=== PATIENT | female | born 1985 | race Caucasian/White ===

== ENCOUNTER → 2018-05-17 08:53 | Outpatient (CLI) | payer OTHER, SELFPAY ==
--- NOTE | 2018-05-17 09:00 | BD_ITS ---
STUDY: DUAL ENERGY X-RAY ABSORPTIOMETRY / DXA REASON FOR EXAM: Female, 32 years old. Long-term prednisone use. No loss of height. TECHNIQUE: Bone Mineral Density (BMD) measurements of lumbar spine and bilateral hips were obtained. COMPARISON: Comparison is made with prior study dated February 06, 2014. FINDINGS: Lumbar Spine (L1-L4): g/cm2 (1.064) / T-score (-0.9) / Z-score (-0.9) Findings are suggestive of normal bone density with a low fracture risk. Left Femur Total: g/cm2 (1.041) / T-score (0.3) / Z-score (0.4) Left Femoral Neck: g/cm2 (1.031) / T-score (0.0) / Z-score (0.2) Right Femur Total: g/cm2 (0.996) / T-score (-0.1) / Z-score (0.0) Right Femoral Neck: g/cm2 (0.941) / T-score (-0.7) / Z-score (-0.5) The T-Scores on the most recent prior examination were: Lumbar Spine (L1-L4): There has been worsening of bone density since the previous examination. Left Femur Total: which represents a worsening of 7.2%. Right Femur Total: which represents a worsening of 8.0%. BD/Dexa Bone Density Study IMPRESSION: The patient is considered normal as outlined below according to World Omar Organization (WHO) criteria with a low fracture risk. There has been worsening of bone density since the previous examination. Reference Information: The T-score is the number of standard deviations above or below the standard which is normal for young adults at their peak bone mineral density. The World Health Organization (WHO) interprets the T-scores as follows: Above -1 Normal bone density Between -1 and -2.5 Osteopenia Equal to / or below -2.5 Osteoporosis As a practical clinical guideline, osteopenia may be graded as follows: Mild -1 through -1.5 Moderate -1.6 through -2.0 Severe -2.1 through -2.4 The Z-score is the number of standard deviations above or below age-matched controls. A Z-score of less than -1.5 would be considered abnormal. References: 1. NIH Osteoporosis and Related Bone Diseases http://www.osteo.org 2. International Society for Clinical Densitometry http://www.iscd.org 3. National Osteoporosis Foundation http://www.nof.org Electronically Signed: Diego Kraus MD at 8:17 EST Tel [phone], Service support ,
== END ==
PROVIDERS: Family Provider Student in an Organized Health Care Education/Training Program; PCP Student in an Organized Health Care Education/Training Program; Referring Provider Internal Medicine Gastroenterology; Visit Provider Internal Medicine Gastroenterology
DX: Z13.820 Encounter for screening for osteoporosis (principal)
CPT/HCPCS: 77080

== ENCOUNTER → 2018-06-13 12:35 | Outpatient (CLI) | payer OTHER, SELFPAY | PROVIDERS: Family Provider Student in an Organized Health Care Education/Training Program; PCP Student in an Organized Health Care Education/Training Program; Referring Provider Internal Medicine Gastroenterology; Visit Provider Internal Medicine Gastroenterology | DX: K62.5 Hemorrhage of anus and rectum (principal); R19.4 Change in bowel habit | CPT/HCPCS: 87506 ==

== ENCOUNTER → 2018-09-21 08:02 | Outpatient (CLI) | payer OTHER, SELFPAY ==
[2018-09-21 08:13] VITALS: BP 134/93; PULSE 101; RESP 18; TEMP 36.9; O2SAT 99; BMI 23.9
== END ==
PROVIDERS: Family Provider Student in an Organized Health Care Education/Training Program; PCP Student in an Organized Health Care Education/Training Program; Referring Provider Internal Medicine Gastroenterology; Visit Provider Internal Medicine Gastroenterology
DX: K51.90 Ulcerative colitis, unspecified, without complications (principal)
CPT/HCPCS: 96413; J7050; A4216; J3380

== ENCOUNTER → 2018-10-05 12:51 | Outpatient (CLI) | payer OTHER, SELFPAY ==
[2018-09-21 08:13] VITALS: BMI 23.9
[2018-10-05 13:03] VITALS: BP 129/72; PULSE 85; RESP 18; TEMP 36.5; O2SAT 100; BMI 24.3
== END ==
PROVIDERS: Family Provider Student in an Organized Health Care Education/Training Program; PCP Student in an Organized Health Care Education/Training Program; Visit Provider Internal Medicine Gastroenterology
DX: K51.90 Ulcerative colitis, unspecified, without complications (principal)
CPT/HCPCS: 96413; J7050; A4216; J3380

== ENCOUNTER → 2018-11-01 09:27 | Outpatient (CLI) | payer OTHER, SELFPAY ==
[2018-09-21 08:13] VITALS: BMI 23.9
[2018-10-05 13:03] VITALS: BMI 24.3
[2018-11-01 09:41] VITALS: BP 128/83; PULSE 83; RESP 16; TEMP 36.7; O2SAT 100; BMI 23.9
== END ==
PROVIDERS: Family Provider Student in an Organized Health Care Education/Training Program; PCP Student in an Organized Health Care Education/Training Program; Referring Provider Internal Medicine Gastroenterology; Visit Provider Internal Medicine Gastroenterology
DX: K51.918 Ulcerative colitis, unspecified with other complication (principal)
CPT/HCPCS: 96413; J7050; A4216; J3380

== ENCOUNTER → 2018-12-27 13:27 | Outpatient (CLI) | payer OTHER, SELFPAY ==
[2018-11-01 09:41] VITALS: BMI 23.9
[2018-12-27 13:39] VITALS: BP 112/71; PULSE 114; RESP 16; TEMP 36.4; O2SAT 100; BMI 23.5
== END ==
PROVIDERS: Family Provider Student in an Organized Health Care Education/Training Program; PCP Student in an Organized Health Care Education/Training Program; Referring Provider Internal Medicine Gastroenterology; Visit Provider Internal Medicine Gastroenterology
DX: K51.90 Ulcerative colitis, unspecified, without complications (principal)
CPT/HCPCS: 96413; J7050; A4216; J3380

== ENCOUNTER → 2019-01-05 09:03 | Outpatient (CLI) | payer OTHER, SELFPAY ==
[2018-12-27 13:39] VITALS: BMI 23.5
--- NOTE | 2019-01-05 09:07 | US_ITS ---
STUDY: ABDOMINAL ULTRASOUND REASON FOR EXAM: Female, 33 years old. Abdominal pain TECHNIQUE: Transabdominal ultrasound was performed with real-time and static swanson scale imaging. TECHNICAL QUALITY: Adequate. COMPARISON: None. FINDINGS: Liver: The liver measures 12.9 cm. There is normal echogenicity of the liver. The bile ducts are within normal limits. There is hepatic color flow. The direction of portal flow is hepatopetal. There is no demonstrated mass lesion. Gallbladder: Normal distended gallbladder. The gallbladder wall measures 3 mm. There is a negative sonographic Prater's sign. There is no pericholecystic fluid. There is a solitary echogenic gallstone within the gallbladder. Common Bile Duct (C.B.D.): The common bile duct measures 3 mm. Pancreas: Normal size of the head, body and tail of the pancreas. There is normal echogenicity of the pancreas. There is no demonstrated pancreatic mass or cyst. Spleen: Normal size of the spleen. The spleen measures 10.4 cm. Right Kidney: Normal size of the right kidney. The right kidney measures 10.1 cm. Normal renal cortex. There is no demonstrated renal mass or cyst. There is no right hydronephrosis. Left Kidney: Normal size of the left kidney. The left kidney measures 10.7 cm. Normal renal cortex. There is no demonstrated renal mass or cyst. There is no left hydronephrosis. Aorta: The aorta is normal in caliber. I.V.C.: The IVC is patent. There is no ascites. US/Abdomen Complete IMPRESSION: Cholelithiasis without sonographic evidence of acute cholecystitis. Otherwise, unremarkable abdominal ultrasound. Electronically Signed: Eddi Hendrix, at 19:44 EDT Tel , Service support ,
== END ==
PROVIDERS: Family Provider Student in an Organized Health Care Education/Training Program; PCP Student in an Organized Health Care Education/Training Program; Referring Provider Internal Medicine Gastroenterology; Visit Provider Internal Medicine Gastroenterology
DX: K51.90 Ulcerative colitis, unspecified, without complications (principal); R10.9 Unspecified abdominal pain; R53.83 Other fatigue; M79.89 Other specified soft tissue disorders
CPT/HCPCS: 76700

== ENCOUNTER → 2019-01-17 11:00 | Outpatient (CLI) | payer OTHER, SELFPAY ==
[2018-12-27 13:39] VITALS: BMI 23.5
[2019-01-17 12:50] LABS: Erythrocyte Sedimentation Rate 21 mm/hr (0-20)
[2019-01-17 12:52] LABS: Hematocrit 31.8 % (37-47); Hemoglobin 9.5 g/dl (12.0-15.0); Mean Corp Hgb Conc 29.9 g/gl (32-36); Mean Corpuscular Hgb 23.5 pg (27.0-32.0); Mean Corpuscular Volume 78.7 fL (81-99); Mean Platelet Vol. 10.3 fl (6.2-12.0); Platelet Count 615 K/mm3 (150-450); RBC Distribution Width CV 14.3 % (11.6-14.6); RBC Distribution Width SD 39.6 fl (35.1-43.9); Red Blood Count 4.04 M/mm3 (4.2-5.4); White Blood Count 17.8 K/mm3 (4.4-11.0)
[2019-01-17 13:00] LABS: Scan Indicated on CBC? Y/N NO
[2019-01-17 13:21] LABS: ALB/GLOB Ratio 0.7 RATIO (0.9-2.4); AST(SGOT) 31 U/L (15-37); Alanine Aminotransfer ALT/SGPT 23 U/L (13-56); Albumin, Serum 3.1 g/dL (3.2-5.0); Alkaline Phosphatase 73 U/L (45-117); Anion Gap 4 (5-15); BUN 10 mg/dL (7-18); BUN/Creat Ratio 11.9 RATIO (10-20); Calcium,Total 9.2 mg/dL (8.5-10.1); Chloride 104 mmol/L (98-107); Creatinine, Serum 0.84 mg/dL (0.55-1.02); EST Glomerular Filtration Rate 82 mL/min (>60); Est Glom Filt Rate - Afr Amer 100 mL/min (>60); Globulin 4.4 g/dL (2.2-4.2); Glucose 84 mg/dL (74-106); Potassium 3.9 mmol/L (3.5-5.1); Protein, Total 7.5 g/dL (6.4-8.2); Sodium Level 138 mmol/L (136-145)
== END ==
PROVIDERS: Family Provider Student in an Organized Health Care Education/Training Program; PCP Student in an Organized Health Care Education/Training Program; Referring Provider Internal Medicine Gastroenterology; Visit Provider Internal Medicine Gastroenterology
DX: D50.9 Iron deficiency anemia, unspecified (principal); R22.40 Localized swelling, mass and lump, unspecified lower limb; K51.918 Ulcerative colitis, unspecified with other complication
CPT/HCPCS: 36415; 80053; 85027; 85652; 86140

== ENCOUNTER → 2019-01-25 07:58 | Outpatient (CLI) | payer OTHER, SELFPAY ==
[2018-12-27 13:39] VITALS: BMI 23.5
[2019-01-25 08:09] VITALS: BP 117/77; PULSE 94; RESP 18; TEMP 36.6; O2SAT 100; BMI 23.9
== END ==
PROVIDERS: Family Provider Student in an Organized Health Care Education/Training Program; PCP Student in an Organized Health Care Education/Training Program; Referring Provider Internal Medicine Gastroenterology; Visit Provider Internal Medicine Gastroenterology
DX: D50.9 Iron deficiency anemia, unspecified (principal)
CPT/HCPCS: 96365; 96366; J1756; J7050; A4216

== ENCOUNTER → 2019-01-25 | Outpatient (CLI) | payer OTHER, SELFPAY ==
[2019-01-25 17:54] VITALS: BMI 23.9
== END | disposition home or self-care (01) ==
LOC: LABSPEC 01-27 14:36
PROVIDERS: Family Provider Student in an Organized Health Care Education/Training Program; PCP Student in an Organized Health Care Education/Training Program; Visit Provider Physician Assistant Surgical
DX: J02.9 Acute pharyngitis, unspecified (principal)
CPT/HCPCS: 87081

== ENCOUNTER → 2019-02-05 13:00 | Outpatient (CLI) | payer OTHER, SELFPAY ==
[2019-01-25 08:09] VITALS: BMI 23.9
[2019-01-25 17:54] VITALS: BMI 23.9
[2019-02-05 13:14] VITALS: BP 123/77; PULSE 85; RESP 15; TEMP 36.6; O2SAT 100; BMI 23.9
== END ==
PROVIDERS: Family Provider Student in an Organized Health Care Education/Training Program; PCP Student in an Organized Health Care Education/Training Program; Referring Provider Internal Medicine Gastroenterology; Visit Provider Internal Medicine Gastroenterology
DX: D50.9 Iron deficiency anemia, unspecified (principal)
CPT/HCPCS: 96365; 96366; J1756; J7050; A4216

== ENCOUNTER → 2019-02-12 12:58 | Outpatient (CLI) | payer OTHER, SELFPAY ==
[2019-01-25 08:09] VITALS: BMI 23.9
[2019-02-05 13:14] VITALS: BMI 23.9
[2019-02-12 13:09] VITALS: BP 132/74; PULSE 90; RESP 18; TEMP 36.8; O2SAT 100; BMI 23.9
== END ==
PROVIDERS: Family Provider Student in an Organized Health Care Education/Training Program; PCP Student in an Organized Health Care Education/Training Program; Referring Provider Internal Medicine Gastroenterology; Visit Provider Internal Medicine Gastroenterology
DX: D50.9 Iron deficiency anemia, unspecified (principal)
CPT/HCPCS: 96365; 96366; J1756; J7050; A4216

== ENCOUNTER → 2019-02-19 10:18 | Outpatient (CLI) | payer OTHER, SELFPAY ==
[2018-12-27 13:39] VITALS: BMI 23.5
[2019-01-25 08:09] VITALS: BMI 23.9
[2019-02-12 13:09] VITALS: BMI 23.9
[2019-02-19 10:43] VITALS: BP 120/71; PULSE 82; RESP 16; TEMP 36.6; O2SAT 100; BMI 23.9
== END ==
PROVIDERS: Family Provider Student in an Organized Health Care Education/Training Program; PCP Student in an Organized Health Care Education/Training Program; Referring Provider Internal Medicine Gastroenterology; Visit Provider Internal Medicine Gastroenterology
DX: K51.90 Ulcerative colitis, unspecified, without complications (principal); D50.9 Iron deficiency anemia, unspecified
CPT/HCPCS: 96366 ×3; 96413; J1756; J7050; A4216; J3380

== ENCOUNTER → 2019-04-01 08:38 | Outpatient (CLI) | payer OTHER, SELFPAY ==
[2019-02-19 10:43] VITALS: BMI 23.9
[2019-04-01 09:44] LABS: Albumin, Serum 3.2 g/dL (3.2-5.0); Prealbumin 16.9 mg/dL (20.0-40.0)
[2019-04-02 16:44] LABS: Transferrin 179 mg/dL (200-370)
== END ==
PROVIDERS: Family Provider Student in an Organized Health Care Education/Training Program; PCP Student in an Organized Health Care Education/Training Program
DX: K52.9 Noninfective gastroenteritis and colitis, unspecified (principal)
CPT/HCPCS: 36415; 82040; 84134; 84466

== ENCOUNTER → 2019-11-22 15:26 | Outpatient (CLI) | payer OTHER, SELFPAY ==
[2019-08-18 13:39] VITALS: BMI 23.9
--- NOTE | 2019-11-22 15:37 | MRI_ITS ---
STUDY: MRI BRAIN WITH AND WITHOUT CONTRAST (ATTENTION INTERNAL AUDITORY CANALS - I.A.C.''s) REASON FOR EXAM: Female, 33 years old. L TINNITUS, INTERMITTENT DIZZINESS X 8 MONTHS TECHNIQUE: Standardized multiplanar fat and water weighted pulse sequences were obtained. IV 12CC DOTAREM was administered for the contrast portion of the examination. COMPARISON: None. FINDINGS: Normal bilateral temporal bones. Normal bilateral internal auditory canals. There is no demonstrated intracanalicular or cisternal vestibular schwannoma (acoustic neuroma). There is no enhancement of the bilateral VIIth or VIIIth cranial nerves. Normal bilateral cochlea, vestibules and semicircular canals. Normal size of the ventricles and extra-axial spaces for the patient''s age. Normal white matter tracts of the supratentorial brain. Normal bilateral basal ganglia. Normal thalami. Normal flow voids within the major intracranial circulation suggesting patency by spin echo criteria. Normal venous enhancement. 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 There is no extra-axial fluid accumulation. Normal sella turcica, pituitary gland, infundibular stalk, optic chiasm and hypothalamus. Normal tectal plate and pineal gland. Normal midbrain, john and medulla. Normal cerebellum. Normal basal cisterns. No demonstrated orbital abnormality, within the constraints of a routine brain study. Normal visualized paranasal sinuses. Normal calvarium and skull base. Normal visualized soft tissue structures. Normal visualized upper cervical spine. MRI/Brain W/WO Contrast IMPRESSION: No MRI evidence of pathology involving the internal auditory canals or cerebellopontine angles. No evidence of infarct or hemorrhage. 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 Electronically Signed: Ernst Solares MD at 17:27 EDT Tel , Service support ,
== END ==
PROVIDERS: Referring Provider Otolaryngology; Visit Provider Otolaryngology
DX: R42 Dizziness and giddiness (principal); H93.12 Tinnitus, left ear
CPT/HCPCS: 70553; A9575

== ENCOUNTER 2022-02-18 22:08 | Emergency (ER) | payer OTHER, SELFPAY ==
[2022-02-18 22:09] VITALS: BP 148/99; PULSE 87; RESP 16; TEMP 36.4; O2SAT 100; BMI 24.9
--- NOTE | 2022-02-18 22:21 | EKG12_ITS ---
Test Reason : DYSRHYTHMIA Blood Pressure : / mmHG Vent. Rate : 073 BPM Atrial Rate : 073 BPM P-R Int : 100 ms QRS Dur : 086 ms QT Int : 386 ms P-R-T Axes : 048 070 060 degrees QTc Int : 425 ms Sinus rhythm with short DE Nonspecific ST abnormality Abnormal ECG Confirmed by PHIL RODRIGUEZ, TAYLOR ([id number]), non linear editor ADELINE DE LA O ([id number]) on 02/21/2022 10:18:43 AM Referred By: CAT Confirmed By:TAYLOR VILLARREAL MD
[2022-02-18 22:36] LABS: Hematocrit 39.8 % (37-47); Hemoglobin 13.8 g/dL (12.0-15.0); Mean Corp Hgb Conc 34.7 g/dL (32-36); Mean Corpuscular Hgb 30.5 pg (27.0-32.0); Mean Corpuscular Volume 88.1 fL (81-99); Mean Platelet Vol. 10.9 fl (6.2-12.0); Platelet Count 317 K/mm3 (150-450); RBC Distribution Width CV 12.8 % (11.6-14.6); RBC Distribution Width SD 41.4 fl (35.1-43.9); Red Blood Count 4.52 M/mm3 (4.2-5.4); White Blood Count 10.2 K/mm3 (4.4-11.0)
--- NOTE | 2022-02-18 22:42 | EX.ED.DYSGE1 ---
HPI History of Present Illness Chief Complaint: Palpitations Detail of Chief Complaint: Palpitations/rapid heart rate and gasp for breath Informant: patient Onset/Context/Timing Onset: Today and Hours (Throughout the day over the past several hours) Context: Sudden Onset Timing: Intermittent and Waxes and wanes Quality: Palpitations with heart rate up to 130 and shortness of breath that awoke p Location: Cardiovascular and respiratory Current Severity: Mild Maximum Severity: Moderate Worsened by: Nothing specific Relieved by: Nothing Associated Symptoms Associated Symptoms: Nothing Narrative Narrative: Patient is a healthy 36-year-old female who apparently had COVID 3 to 4 weeks ago. She has had intermittent tachycardia with shortness of breath today. She had 1 episode that awoke her from sleep with shortness of breath. She denies history of PE or DVT. There is a family history, however. She denies leg pain, swelling discoloration. She denies heat or cold intolerance. She denies weight loss. She denies history of thyroid disease. She presently denies headache, upper respiratory symptoms. She denies nausea, vomiting or diarrhea. She denies black or maroon-colored stool. Prior similar symptoms: No Recent Illness/Hospitalization: No PFSH PFS Medical History (Updated 02/18/22 @ 23:[address] Angelo Rojo MD) Colostomy in place Ulcerative colitis Medical History no medical history no medical history (Recent COVID infection) Home Medications lactobacillus combination no.4 3 billion cell capsule 1 ea PO DAILY 09/21/18 [History Last Taken Unknown] Allergy/AdvReac Type Severity Reaction Status Date / Time azithromycin Allergy Mild Itching Verified 02/18/22 22:10 Surgical History no surgical history no surgical history Social History (Updated 02/18/22 @ 22:[address] Angelo Rojo MD) household members: spouse and children Smoking Status: Never smoker substance use type: does not use ROS ROS ED Constitutional Constitutional ED: Denies chills, fever(s), subjective, sweats or weight loss Eyes Eyes: Denies blurry vision, change in vision or diplopia ENT ENT ED: Denies ear pain, rhinorrhea or sore throat Cardiovascular Cardiovascular: Reports palpitations, paroxysmal nocturnal dyspnea and racing heartbeat; Denies chest pain or orthopnea Respiratory/Chest Respiratory/Chest: Reports dyspnea and paroxysmal nocturnal dyspnea; Denies cough, dyspnea on exertion or orthopnea Gastrointestinal Gastrointestinal: Denies abdominal pain, constipation, diarrhea, melena, nausea or vomiting Genitourinary Genitourinary ED: Denies dysuria, hematuria or urinary frequency Musculoskeletal Musculoskeletal: Denies arthralgias, back pain, myalgias or neck pain Integumentary Denies Abrasions or rash Neurologic Neurologic: Denies headache(s) or paresthesias Endocrine Endocrinology: Denies cold intolerance or heat intolerance Hematologic/Lymphatic Hematologic/Lymphatic: Reports systems reviewed and no addt'l complaints, except as documented EXAM Physical Exam Const Vital Signs: 02/18/22 22:09 Temperature 97.6 F L Temperature Source Temporal Pulse Rate 87 Respiratory Rate 16 Blood Pressure 148/99 H Blood Pressure Mean 115 Pulse Ox 100 Oxygen Delivery Method Room Air Positive well nourished and well developed; Negative for obese General Appearance ED: well developed and NAD; Negative for cyanotic, diaphoretic or pallor Nutritional Appearance: Negative for obese HEENT Reports moist mucous membranes; Denies dry mucous membranes HEENT Narrative: Atraumatic normocephalic. Ears normal. Nares patent. Uvula midline. No erythema or exudate of posterior pharynx. Mouth ED: No dry mucous membranes Mouth: No dry mucous membranes Eyes PERRL and EOMs intact bilaterally General Eye ED: Negative for pale conjunctiva or scleral icterus Neck no lymphadenopathy, supple and no JVD Chest Wall inspection of chest normal and palpation of chest normal Resp normal respiratory effort and clear to auscultation bilaterally Cardio regular rate, regular rhythm, S1 normal heart sound, S2 normal heart sound and no murmurs GI normal to inspection, nondistended, normoactive bowel sounds, non-tender, non-distended and no masses; Negative for hepatosplenomegaly Back/Spine no CVA tenderness Extremity normal to inspection Extremity Narrative: There is no asymmetry, swelling, discoloration, leg vein distention, palpable cords or tenderness along the distribution of the deep venous system. Neuro oriented x3, CN's II-XII intact bilaterally and no sensory deficits noted Motor Exam: strength 5/5 throughout Psych mental status grossly normal Skin no rashes or lesions noted, no wounds and skin turgor normal General Skin Exam: Negative for jaundice or pallor MDM MDM MDM Narrative Medical decision making narrative: With tachycardia and recent COVID infection need to rule out myocarditis, also need to consider pulmonary embolus and she complained of shortness of breath. Will obtain D-dimer, troponin, basic metabolic panel and CBC. Since she is not tachypneic and has no abnormal auscultatory findings chest x-ray was not obtained. With normal D-dimer normal troponin PE and ischemic cardiomyopathy has been ruled out. She may have myocarditis or tachycardia due to her recent COVID infection. We will refer her to Dr. Cem Colón for outpatient follow-up. Lab Data Attestation: I reviewed the patient's lab results. Lab results narrative: His lastCBC and H&H are unremarkable. D-dimer is less than 0.27. Basic metabolic panel is remarkable slight elevated glucose of 142. TSH is normal at 2.75. With symptoms for hours patient has a normal troponin and 8. We will not obtain 2-hour troponin. Labs: Laboratory Results - last 24 hr 02/18/22 02/18/22 02/18/22 22:25 22:25 22:25 WBC 10.2 RBC 4.52 Hgb 13.8 Hct 39.8 MCV 88.1 MCH 30.5 MCHC 34.7 RDW Std Deviation 41.4 RDW Coeff of Damari 12.8 Plt Count 317 MPV 10.9 D-Dimer Quant (PE/DVT) < 0.27 L Sodium 138 Potassium 3.1 L Chloride 106 Carbon Dioxide 27.0 Anion Gap 5 BUN 10 Creatinine 0.97 Estim Creat Clear Calc 68.57 Est GFR (MDRD) Af Amer 83 Est GFR (MDRD) Non-Af 68 BUN/Creatinine Ratio 10.3 Glucose 142 H Calcium 9.1 Troponin I High Sens TSH 2.75 02/18/22 22:25 WBC RBC Hgb Hct MCV MCH MCHC RDW Std Deviation RDW Coeff of Damari Plt Count MPV D-Dimer Quant (PE/DVT) Sodium Potassium Chloride Carbon Dioxide Anion Gap BUN Creatinine Estim Creat Clear Calc Est GFR (MDRD) Af Amer Est GFR (MDRD) Non-Af BUN/Creatinine Ratio Glucose Calcium Troponin I High Sens 5 TSH EKG Initial EKG: Attestation: I personally reviewed and interpreted this EKG as follows: Interpretation: Sinus Rhythm (Rate is 73. [place] intervals 100 ms. QS duration 86 ms. QT duration 386 ms. [place] is normal. The EKG reveals a short [place] interval otherwise unremarkable.) Discharge Plan Triage Chief Complaint: Palpitations ED Provider: Angelo Rojo Dx/Rx/DC Orders Clinical Impression: Sinus tachycardia, History of COVID-19 Prescriptions: No Action lactobacillus combination no.4 1 EACH capsule 1 ea PO DAILY Primary Care Provider: Tae Mendez Referrals: Cem Colón MD [Med Staff - Active Staff] - 5-7 Days Care Physician,No Primary [Non-Staff] - Activity Restrictions/Additional Instructions: If you develop lightheadedness with rapid heart rate return to the emergency department. If your heart rate is greater than 150 at rest return to the emergency department Disposition Disposition: Home, Self Care
[2022-02-18 22:49] LABS: D-Dimer Quantitative (DVT/PE) < 0.27 FEU/ug/m (0.27-0.49)
[2022-02-18 23:01] LABS: Anion Gap 5 (5-15); BUN 10 mg/dL (7-18); BUN/Creat Ratio 10.3 RATIO (10-20); Calcium,Total 9.1 mg/dL (8.5-10.1); Chloride 106 mmol/L (98-107); Creatinine, Serum 0.97 mg/dL (0.55-1.02); EST Glomerular Filtration Rate 68 mL/min (>60); Est Glom Filt Rate - Afr Amer 83 mL/min (>60); Estimated Creatinine Clearance 68.57 ml/min; Glucose 142 mg/dL (74-106); Potassium 3.1 mmol/L (3.5-5.1); Sodium Level 138 mmol/L (136-145); Thyroid Stim Hormone (TSH) 2.75 uIU/mL (0.358-3.74)
[2022-02-18 23:10] LABS: Troponin-I HS 5 pg/mL (3.0-54.0)
[2022-02-18 23:59] VITALS: BP 134/77; PULSE 62; RESP 15; O2SAT 98
== END 2022-02-19 | disposition home or self-care (01) ==
PROVIDERS: Emergency Provider Emergency Medicine; PCP Family Medicine; Visit Provider Emergency Medicine
DX: R00.0 Tachycardia, unspecified (principal); Z86.16 Personal history of COVID-19
CPT/HCPCS: 80048; 84443; 84484; 85027; 85379; 93005; 99283; A4216

== ENCOUNTER → 2022-03-11 | Outpatient (CLI) | payer OTHER, SELFPAY ==
[2022-03-11 14:56] LABS: Absolute Lymphocyte Count 1.02 X10^3/uL (0.83-4.51); Basophil# 0.08 X10^3/uL; Basophil% 0.8 % (0-1); Eosinophil# 0.14 X10^3/uL; Eosinophils% 1.4 % (0-5); Hematocrit 43.5 % (37-47); Hemoglobin 14.4 g/dL (12.0-15.0); Lymphocyte # 1.02 X10^3/ul (0.83-4.51); Lymphocyte % 10.2 % (19-41); Mean Corp Hgb Conc 33.1 g/dL (32-36); Mean Corpuscular Hgb 29.8 pg (27.0-32.0); Mean Corpuscular Volume 89.9 fL (81-99); Mean Platelet Vol. 11.4 fl (6.2-12.0); Monocyte# 0.74 X10^3/uL; Monocyte% 7.4 % (0-10); NRBC Flagged by Analyzer 0 % (0-5); Neutrophil % 79.8 % (47-70); Platelet Count 357 K/mm3 (150-450); RBC Distribution Width CV 12.5 % (11.6-14.6); RBC Distribution Width SD 41.3 fl (35.1-43.9); Red Blood Count 4.84 M/mm3 (4.2-5.4)
[2022-03-11 15:34] LABS: AST(SGOT) 44 U/L (15-37); Alanine Aminotransfer ALT/SGPT 54 U/L (13-56); Albumin, Serum 4.1 g/dL (3.2-5.0); Alkaline Phosphatase 53 U/L (45-117); Anion Gap 7 (5-15); BUN 11 mg/dL (7-18); BUN/Creat Ratio 11.4 RATIO (10-20); Calcium,Total 9.4 mg/dL (8.5-10.1); Chloride 106 mmol/L (98-107); Creatinine, Serum 0.97 mg/dL (0.55-1.02); EST Glomerular Filtration Rate 69 mL/min (>60); Est Glom Filt Rate - Afr Amer 83 mL/min (>60); Glucose 114 mg/dL (74-106); Magnesium 2.2 mg/dL (1.6-2.6); Potassium 3.6 mmol/L (3.5-5.1); Protein, Total 8.1 g/dL (6.4-8.2); Sodium Level 140 mmol/L (136-145); T4 Free Direct 0.85 ng/dL (0.76-1.46); Thyroid Stim Hormone (TSH) 0.85 uIU/mL (0.358-3.74)
== END | disposition home or self-care (01) ==
LOC: MFPLAB 13:56
PROVIDERS: PCP Family Medicine; Visit Provider Family Medicine
DX: R00.0 Tachycardia, unspecified (principal); E87.6 Hypokalemia
CPT/HCPCS: 36415; 80053; 83735; 84439; 84443; 85025

== ENCOUNTER → 2022-04-20 | Outpatient (CLI) | payer OTHER, SELFPAY ==
[2022-04-27 11:18] LABS: HPV APTIMA, High Risk Negative (Negative)
== END | disposition home or self-care (01) ==
LOC: LABSPEC 04-21 07:46
PROVIDERS: PCP Family Medicine; Visit Provider Obstetrics & Gynecology
DX: Z12.4 Encounter for screening for malignant neoplasm of cervix (principal)
CPT/HCPCS: 87624; 88175; G0145

== ENCOUNTER → 2022-05-20 | Outpatient (CLI) | payer OTHER, SELFPAY ==
[2022-05-20 09:55] LABS: Absolute Lymphocyte Count 1.22 X10^3/uL (0.83-4.51); Absolute Neutrophil Count 4.3 X10^3/uL (2.0-7.7); Basophil# 0.05 X10^3/uL; Basophil% 0.8 % (0-1); Eosinophil# 0.11 X10^3/uL; Eosinophils% 1.8 % (0-5); Hemoglobin 13.6 g/dL (12.0-15.0); Lymphocyte # 1.22 X10^3/ul (0.83-4.51); Lymphocyte % 19.5 % (19-41); Mean Corp Hgb Conc 32.4 g/dL (32-36); Mean Corpuscular Hgb 29.8 pg (27.0-32.0); Mean Corpuscular Volume 91.9 fL (81-99); Mean Platelet Vol. 11.5 fl (6.2-12.0); Monocyte# 0.58 X10^3/uL; Monocyte% 9.3 % (0-10); NRBC Flagged by Analyzer 0 % (0-5); Neutrophil # 4.27 X10^3/uL (2.7-7.7); Neutrophil % 68.1 % (47-70); Platelet Count 329 K/mm3 (150-450); RBC Distribution Width CV 12.7 % (11.6-14.6); RBC Distribution Width SD 42.5 fl (35.1-43.9); Red Blood Count 4.57 M/mm3 (4.2-5.4); White Blood Count 6.3 K/mm3 (4.4-11.0)
[2022-05-20 10:17] LABS: Vitamin B12 970 pg/mL (211-911)
[2022-05-20 11:14] LABS: AST(SGOT) 36 U/L (15-37); Alanine Aminotransfer ALT/SGPT 71 U/L (13-56); Albumin, Serum 3.7 g/dL (3.2-5.0); Alkaline Phosphatase 48 U/L (45-117); Anion Gap 5 (5-15); BUN 14 mg/dL (7-18); BUN/Creat Ratio 15.8 RATIO (10-20); Calcium,Total 8.5 mg/dL (8.5-10.1); Chloride 107 mmol/L (98-107); Cholesterol 179 mg/dL (200); Creatinine, Serum 0.89 mg/dL (0.55-1.02); EST Glomerular Filtration Rate 76 mL/min (>60); Est Glom Filt Rate - Afr Amer 92 mL/min (>60); Globulin 3.8 g/dL (2.2-4.2); Glucose 94 mg/dL (74-106); High Density Lipoprotein 63 mg/dL; Protein, Total 7.5 g/dL (6.4-8.2); Sodium Level 138 mmol/L (136-145); Triglycerides 66 mg/dL; Very Low Density Lipoprotein 13 mg/dL (5-40)
== END | disposition home or self-care (01) ==
LOC: MFPLAB 08:43
PROVIDERS: PCP Family Medicine; Referring Provider Family Medicine; Visit Provider Nurse Practitioner Family
DX: R20.0 Anesthesia of skin (principal); Z13.220 Encounter for screening for lipoid disorders
CPT/HCPCS: 36415; 80053; 80061; 82607; 82746; 84443; 85025

== ENCOUNTER → 2022-06-10 | Outpatient (CLI) | payer OTHER, SELFPAY ==
--- NOTE | 2022-06-10 09:45 | BI_ITS ---
MAMMOGRAPHY - BILATERAL SCREENING REASON FOR EXAM: Female, 36 years old. Routine annual screening examination. PERTINENT HISTORY: Mother with breast cancer. Aunt with breast cancer. TECHNIQUE: Digital bilateral breast risa (3D mammographic acquisition) in the CC and MLO projections. 2-D mediolateral oblique (MLO) and craniocaudad (CC) views of both breasts were obtained. CAD: Full Field Digital Mammography with Computer Added Detection was performed. COMPARISON: None. Baseline examination. FINDINGS: Breast Composition: The breasts are heterogeneously dense, which may obscure small masses. There are no dominant masses or suspicious calcifications. No other significant abnormalities are identified. BI/SCRN MAMM (CAD)W/RISA BILAT IMPRESSION: Negative screening mammogram. Yearly followup mammogram recommended. (A) ASSESSMENT CATEGORY: BIRADS Category 1: Negative. A letter regarding these results will be sent to the patient by the facility within 30 days. Approximately 10% of breast cancers are not detected by mammography. A normal mammogram should not delay biopsy of a clinically suspicious abnormality. [id number] Electronically Signed: Diego Kraus MD at 10:34 EST ,
== END | disposition home or self-care (01) ==
LOC: OPBI 09:45
PROVIDERS: PCP Family Medicine; Referring Provider Obstetrics & Gynecology; Visit Provider Obstetrics & Gynecology
DX: Z12.31 Encounter for screening mammogram for malignant neoplasm of breast (principal); Z80.3 Family history of malignant neoplasm of breast
CPT/HCPCS: 77063; 77067; 87624; 88175; G0145

== ENCOUNTER → 2022-10-27 | Outpatient (CLI) | payer OTHER, SELFPAY ==
[2022-10-27 17:48] LABS: Absolute Lymphocyte Count 1.23 X10^3/uL (0.83-4.51); Absolute Neutrophil Count 7.4 X10^3/uL (2.0-7.7); Basophil# 0.09 X10^3/uL; Basophil% 0.9 % (0-1); Eosinophil# 0.09 X10^3/uL; Eosinophils% 0.9 % (0-5); Hematocrit 42.8 % (37-47); Hemoglobin 14.3 g/dL (12.0-15.0); Lymphocyte # 1.23 X10^3/ul (0.83-4.51); Lymphocyte % 12.8 % (19-41); Mean Corp Hgb Conc 33.4 g/dL (32-36); Mean Corpuscular Volume 89.9 fL (81-99); Mean Platelet Vol. 11.4 fl (6.2-12.0); Monocyte# 0.76 X10^3/uL; Monocyte% 7.9 % (0-10); NRBC Flagged by Analyzer 0 % (0-5); Neutrophil # 7.39 X10^3/uL (2.7-7.7); Neutrophil % 77.2 % (47-70); Platelet Count 378 K/mm3 (150-450); RBC Distribution Width CV 12.3 % (11.6-14.6); RBC Distribution Width SD 40.4 fl (35.1-43.9); Red Blood Count 4.76 M/mm3 (4.2-5.4); White Blood Count 9.6 K/mm3 (4.4-11.0)
[2022-10-27 18:09] LABS: ALB/GLOB Ratio 1.1 RATIO (0.9-2.4); AST(SGOT) 28 U/L (15-37); Alanine Aminotransfer ALT/SGPT 29 U/L (13-56); Albumin, Serum 4.1 g/dL (3.2-5.0); Alkaline Phosphatase 48 U/L (45-117); Anion Gap 4 (5-15); BUN 13 mg/dL (7-18); BUN/Creat Ratio 14.2 RATIO (10-20); Calcium,Total 9.4 mg/dL (8.5-10.1); Chloride 107 mmol/L (98-107); Creatinine, Serum 0.91 mg/dL (0.55-1.02); EST Glomerular Filtration Rate 73 mL/min (>60); Est Glom Filt Rate - Afr Amer 89 mL/min (>60); Globulin 3.8 g/dL (2.2-4.2); Glucose 105 mg/dL (74-106); Magnesium 2.4 mg/dL (1.6-2.6); Potassium 3.6 mmol/L (3.5-5.1); Protein, Total 7.9 g/dL (6.4-8.2); Sodium Level 138 mmol/L (136-145); Thyroid Stim Hormone (TSH) 0.68 uIU/mL (0.358-3.74)
== END | disposition home or self-care (01) ==
PROVIDERS: PCP Family Medicine; Visit Provider Family Medicine
DX: R00.0 Tachycardia, unspecified (principal)
CPT/HCPCS: 36415; 80053; 83735; 84443; 85025

== ENCOUNTER → 2023-01-31 | Outpatient (CLI) | payer OTHER, SELFPAY ==
[2023-01-31 09:17] LABS: Absolute Lymphocyte Count 1.14 X10^3/uL (0.83-4.51); Absolute Neutrophil Count 5.1 X10^3/uL (2.0-7.7); Basophil# 0.07 X10^3/uL; Eosinophil# 0.09 X10^3/uL; Eosinophils% 1.3 % (0-5); Hematocrit 42.9 % (37-47); Hemoglobin 14.3 g/dL (12.0-15.0); Lymphocyte # 1.14 X10^3/ul (0.83-4.51); Lymphocyte % 16.1 % (19-41); Mean Corp Hgb Conc 33.3 g/dL (32-36); Mean Corpuscular Hgb 30.3 pg (27.0-32.0); Mean Corpuscular Volume 90.9 fL (81-99); Mean Platelet Vol. 10.4 fl (6.2-12.0); Monocyte# 0.66 X10^3/uL; Monocyte% 9.3 % (0-10); NRBC Flagged by Analyzer 0 % (0-5); Neutrophil # 5.09 X10^3/uL (2.7-7.7); Neutrophil % 72.2 % (47-70); Platelet Count 342 K/mm3 (150-450); RBC Distribution Width CV 12.3 % (11.6-14.6); RBC Distribution Width SD 40.8 fl (35.1-43.9); Red Blood Count 4.72 M/mm3 (4.2-5.4); White Blood Count 7.1 K/mm3 (4.4-11.0)
[2023-01-31 09:25] LABS: Internal QC Validated? YES +Cl - CLEAR BKGD; Pregnancy, Serum, hCG Quali. NEGATIVE Negative
[2023-01-31 09:31] LABS: Anion Gap 1 (5-15); BUN 13 mg/dL (7-18); BUN/Creat Ratio 12.6 RATIO (10-20); Chloride 108 mmol/L (98-107); Creatinine, Serum 1.03 mg/dL (0.55-1.02); EST Glomerular Filtration Rate 64 mL/min (>60); Est Glom Filt Rate - Afr Amer 77 mL/min (>60); Glucose 100 mg/dL (74-106); Potassium 4.2 mmol/L (3.5-5.1); Sodium Level 140 mmol/L (136-145)
--- NOTE | 2023-01-31 17:10 | PCM.TILTTABL ---
Staff Staff: Itzel Call and Bernie Mars Summary Pre Test Resting HR: 63 Pre Test Resting BP: 131/86 Minimum Test HR: 63 Maximum Test HR: 104 Minimum Test BP: 128/101 Maximum Test BP: 137/102 Physician Tilt Table Report Patient's Physicians Primary Care Physician: Tae Mendez Indications/Diagnosis: Tachycardia with orthostatic hypotension Procedure Comments: Patient was brought to the noninvasive lab in the postabsorptive state. Informed consent was obtained. EKG was obtained at rest. It demonstrated sinus rhythm with a rate of 63 bpm and resting blood pressure of 131/86 mmHg. The patient was then placed in the 70 degree head upright tilt position. Continuous EKG monitoring as well as blood pressure monitoring was obtained. No EKG changes were noted. The patient maintained stable blood pressure throughout the procedure. A minute after placing in the head upright tilt position heart rate went from 63 to 98 bpm and stayed in the 90s to low 100s throughout with no change in blood pressure. Patient exhibited no symptomatology. The test was ended at the appropriate time and the patient was placed back in the recumbent position with blood pressures being recorded. No significant abnormalities were noted. Summary: Normal tilt table test with no significant symptomatology or blood pressure or heart rate changes.
[2023-01-31 17:14] VITALS: BP 128/101; BP 131/86; BP 137/102
== END | disposition home or self-care (01) ==
PROVIDERS: PCP Family Medicine; Referring Provider Family Medicine; Visit Provider Family Medicine
DX: I95.1 Orthostatic hypotension (principal); R00.0 Tachycardia, unspecified
CPT/HCPCS: 36415; 80048; 84703; 85025; 93660; J7040; A4216

== ENCOUNTER → 2023-06-16 | Outpatient (CLI) | payer OTHER, SELFPAY ==
--- NOTE | 2023-06-16 09:21 | BI_ITS ---
MAMMOGRAPHY - BILATERAL SCREENING REASON FOR EXAM: Female, 37 years old. Routine annual screening examination. PERTINENT HISTORY: Mother with breast cancer. Aunt with breast cancer. TECHNIQUE: Digital bilateral breast risa (3D mammographic acquisition) in the CC and MLO projections. 2-D mediolateral oblique (MLO) and craniocaudad (CC) views of both breasts were obtained. CAD: Full Field Digital Mammography with Computer Added Detection was performed. COMPARISON: Comparison is made with prior study dated June 10, 2022. FINDINGS: Breast Composition: The breasts are heterogeneously dense, which may obscure small masses. There are no dominant masses or suspicious calcifications. No other significant abnormalities are identified. There has been no significant change since the prior study. BI/SCRN MAMM (CAD)W/RISA BILAT IMPRESSION: Stable bilateral screening mammogram. Yearly follow-up mammogram recommended. (A) ASSESSMENT CATEGORY: BIRADS Category 1: Negative. A letter regarding these results will be sent to the patient by the facility within 30 days. Approximately 10% of breast cancers are not detected by mammography. A normal mammogram should not delay biopsy of a clinically suspicious abnormality. [id number] Electronically Signed: Diego Kraus MD at 11:19 EST ,
== END | disposition home or self-care (01) ==
LOC: OPBI 09:19
PROVIDERS: PCP Family Medicine; Referring Provider Obstetrics & Gynecology; Visit Provider Obstetrics & Gynecology
DX: Z12.31 Encounter for screening mammogram for malignant neoplasm of breast (principal)
CPT/HCPCS: 77063; 77067

== ENCOUNTER → 2023-08-09 | Outpatient (CLI) | payer OTHER, SELFPAY ==
[2023-08-09 15:12] LABS: Bacteria 0 SEEN /hpf (None Seen); Mucous, Urine 0 SEEN /hpf (<or=2+); Red Blood Cells-Urine 0 SEEN /hpf (0-5)
[2023-08-09 18:10] LABS: Color, Urine Yellow (Yellow); Glucose, Dipstick Normal (Normal); Ketone-Dipstick Negative (Negative); Leukocyte Esterase-Dipstick Negative /ul (Negative); Nitrite-Dipstick Negative (Negative); Occult Blood-Urine Negative /ul (Negative); Protein-Dipstick Negative (Negative); Specific Gravity, Urine 1.025 (1.002-1.030); Urine Bilirubin Dipstick Negative (Negative); Urine Clarity Clear (Clear); Urine Urobilinogen Normal (Normal)
[2023-08-09 18:27] LABS: ALB/GLOB Ratio 1.1 RATIO (0.9-2.4); AST(SGOT) 21 U/L (15-37); Alanine Aminotransfer ALT/SGPT 26 U/L (13-56); Albumin, Serum 3.9 g/dL (3.2-5.0); Alkaline Phosphatase 53 U/L (45-117); Anion Gap 4 (5-15); BUN 15 mg/dL (7-18); BUN/Creat Ratio 16.1 RATIO (10-20); Calcium,Total 9.4 mg/dL (8.5-10.1); Chloride 103 mmol/L (98-107); Cholesterol 191 mg/dL (200); Creatinine, Serum 0.93 mg/dL (0.55-1.02); EST Glomerular Filtration Rate 71 mL/min (>60); Est Glom Filt Rate - Afr Amer 86 mL/min (>60); Globulin 3.5 g/dL (2.2-4.2); Glucose 122 mg/dL (74-106); High Density Lipoprotein 62 mg/dL; Magnesium 2.2 mg/dL (1.6-2.6); Potassium 3.2 mmol/L (3.5-5.1); Protein, Total 7.4 g/dL (6.4-8.2); Sodium Level 136 mmol/L (136-145); Triglycerides 73 mg/dL; Very Low Density Lipoprotein 15 mg/dL (5-40)
[2023-08-09 18:29] LABS: Squamous Epithelial Cells - UA 0-5 SEEN /hpf (5-10); White Blood Cells 0-5 SEEN /hpf (0-5)
== END | disposition home or self-care (01) ==
LOC: MFPLAB 15:11
PROVIDERS: PCP Family Medicine; Visit Provider Family Medicine
DX: I10 Essential (primary) hypertension (principal)
CPT/HCPCS: 36415; 80053; 80061; 81001; 83735; 84443

== ENCOUNTER → 2023-08-23 | Outpatient (CLI) | payer OTHER, SELFPAY ==
--- OUTSIDE RECORDS SUMMARY | 2023-08-23 09:15 | XMS RPT_ITS | CCD ---
Author Name Unknown Address [address] [place] [address] Organization [facility] Care Team Providers Care Clinical Psychology Teacher Name Role Phone Harris Fournier Unavailable Unavailable Unavailable Primary Care Provider HARRIS Dexter MD Attending Unavailable PHYSICIAN, PATIENT UNSURE Primary Care CHRISTINA Palacios Referring Unavailable HAI, CHRISTINA Attending Unavailable HAI, CHRISTINA Attending Unavailable HAI, CHRISTINA Referring Unavailable HAI, CHRISTINA Attending Unavailable PHYSICIAN, PATIENT UNSURE Primary Care Physician Unavailable Allergies Allergy Classification Reported Allergen(s) Allergy Type Date of Onset Reaction(s) Facility (7 sources) Azithromycin; Translations: [AZITHROMYCIN] Drug Allergy 11-24-2010 Itching [facility] Work Phone: Medications Current Medications Medication Drug Class(es) Dates Sig (Normalized) Sig (Original) hydroCHLOROthiazide 25 mg / triamterene 37.5 mg oral capsule (1 source) Potassium-spari ng Diuretic, Thiazide Diuretic Start: 08-15-2023 take 0.5 capsule by mouth once daily hydrochlorothiaz morris-triamterene 25 mg-37.5 mg oral capsule 0.5 cap, Oral, qDay, 0 Refill(s) Start Date: 08/15/23 Status: Ordered Completed/Discontinued Medications Medication Drug Class(es) Dates Sig (Normalized) Sig (Original) gabapentin 300 mg oral capsule (4 sources) Anti-epileptic Agent Start: 05-05-2019 take 1 capsule by mouth every eight hours gabapentin (NEURONTIN) 300 mg capsule Take 1 capsule by mouth every 8 hours for 6 doses. 6 capsule 0 05/05/2019 Active Problems Active Problems Problem Classification Problem Date Documented Da te Episodic/Chronic Joint disorders and dislocations; trauma-related (1 source) Tear of meniscus of knee 06-12-2017 Episodic Past or Other Problems Problem Classification Problem Date Documented Date Episodic/Chronic Fluid and electrolyte disorders (5 sources) Hypokalemia; Translations: [Hypokalemia] Onset: 05-06-2019 05-06-2019 Episodic Other nervous system disorders (5 sources) Acute postoperative pain; Translations: [Other acute postprocedural pain] Onset: 05-02-2019 05-05-2019 Episodic Unclassified (1 source) K51.90 Onset: 02-27-2017 Results Test Name Value Interpretation Reference Range Facil ity Vital Signs Date Time Vital Sign Value Performing Clinician Faci lity 08-15-2023 10:16-0500 Diastolic Blood Pressure Non-Invasive 92 mm[Hg] HARRIS FOURNIER MD [facility] 08-15-2023 10:16-0500 Heart rate 92 /min HARRIS FOURNIER MD [facility] 08-15-2023 10:16-0500 Respiratory rate 16 /min HARRIS FOURNIER MD [facility] 08-15-2023 10:16-0500 Systolic Blood Pressure Non-Invasive 135 mm[Hg] HARRIS FOURNIER MD [facility] 08-15-2023 10:11-0500 Body height 160 cm HARRIS FOURNIER MD [facility] 06-12-2023 11:30-0500 Body height 160 cm Christina Kyleams [employer] Work Phone: [facility] 06-12-2023 11:30-0500 Body weight 66.95 kg Christina Kyleams [employer] Work Phone: [facility] 08-09-2022 13:38-0500 Body height 160 cm Christina Kyleams [employer] Work Phone: [facility] 08-09-2022 13:38-0500 Body weight 68.04 kg Christina Kyleams [employer] Work Phone: [facility] Encounters Encounter Date Encounter Type Care Provider Facility Start: 08-15-2023 End: 08-15-2023 Minor Procedure HARRIS FOURNIER MD [facility] Start: 06-12-2023 End: 06-12-2023 ambulatory CHRISTINA VALLES Facility:[facility] Start: 06-12-2023 End: 06-12-2023 Patient encounter procedure Christina Valles [employer] Work Phone: Colorectal Surgery Procedures Date Procedure Procedure Detail Performing Clinician Excision of bunion HARRIS PHILLIPS MD Plan of Treatment Date Care Activity Detail Author Start: 2044 HEPATITIS B (1 of 3 - Risk 3-dose series) HEPATITIS B (1 of 3 - Risk 3-dose series) [facility] Start: 2044 Hepatitis B Vaccine (1 of 3 - Risk 3-dose series) Hepatitis B Vaccine (1 of 3 - Risk 3-dose series) [facility] Start: 05-08-2025 Urine microalbumin profile [facility] Start: 03-10-2023 Influenza vaccination Influenza Vaccine (#1) [facility] Start: 07-10-2022 DEPRESSION ASSESSMENT DEPRESSION ASSESSMENT [facility] Start: 03-10-2022 Influenza vaccination INFLUENZA (#1) [facility] Start: 12-23-2019 HPV TESTING HPV TESTING [facility] Start: 12-23-2019 PAP TESTING PAP TESTING [facility] Start: 12-09-2003 Hepatitis A Vaccine (1 of 2 - Risk 2-dose series) Hepatitis A Vaccine (1 of 2 - Risk 2-dose series) [facility] Start: 2002 HEPATITIS C SCREENING HEPATITIS C SCREENING [facility] Start: 2002 MMR (1 of 2 - Risk 2-dose series) MMR (1 of 2 - Risk 2-dose series) [facility] Start: 2002 MMR Vaccine (1 of 2 - Risk 2-dose series) MMR Vaccine (1 of 2 - Risk 2-dose series) [facility] Start: 1994 Meningococcal B Vaccine: Consider Based On Risk (1 of 4 - Increased Risk) Meningococcal B Vaccine: Consider Based On Risk (1 of 4 - Increased Risk) [facility] Start: 1985 HEPATITIS A (1 of 2 - Risk 2-dose series) HEPATITIS A (1 of 2 - Risk 2-dose series) [facility] Start: 06-09-1985 COVID-19 VACCINE (#1) COVID-19 VACCINE (#1) [facility] End: 05-18-2024 SIGMOIDOSCOPY SIGMOIDOSCOPY Endoscopy Routine Ulcerative chronic pancolitis with rectal bleeding (HCC) 1 Occurrences starting 05/19/2023 until 05/18/2024 [facility] Work Phone: Immunizations Immunization Date Immunization Notes Care Provider Fiona tapia 06-13-2016 influenza, injectabl e, quadrivalent, contains preservative Christina Worthams [employer] Work Phone: [facility] 06-13-2016 influenza virus vaccine, unspecified formulation Christina Worthams [employer] Work Phone: [facility] 05-08-2015 tetanus toxoid, redu marcus diphtheria toxoid, and acellular pertussis vaccine, adsorbed Christina Worthams [employer] Work Phone: [facility] Work Phone: 04-17-2015 influenza, injectabl e, quadrivalent, contains preservative Christina Worthams [employer] [employer] Work Phone: [facility] 05-07-2012 influenza virus vaccine, unspecified formulation Christina Worthams [employer] [employer] Work Phone: [facility] Work Phone: Payers Date Payer Category Payer Unknown [employer] [id number] 2018-Present [phone] [address] [place] [address] PPO [id number] 2018 Unknown [id number] 2015 Unknown [id number] 1984 Unknown [id number] Social History Date Type Detail Facility Tobacco smoking stat [facility] Never smoked tobacco [facility] Start: 08-09-2022 Alcohol intake Current non-dr spring repairer helper hand of alcohol (finding) [facility] Start: 1985 Sex Assigned At Female [facility] Start: 08-09-2022 End: 06-12-2023 History of Social function [facility] Start: 08-09-2022 End: 06-12-2023 Tobacco use panel [facility] PHQ2 Score 0 [facility] Start: 04-23-2019 Gender identity Identifies as female gender (finding) [facility] Start: 04-23-2019 Sexual orientation Heterosexual (fin ding) [facility] Start: 06-12-2023 Alcohol intake Current drinke r of alcohol (finding) [facility] Start: 06-12-2023 Alcohol Comment rare [facility] Sex Assigned At Sex [facility] Functional Status Date Assessment Result Facility 08-15-2023 Functional Status ID band on, Allergy Band on [facility] Mental Status Date Assessment Result Facility 08-15-2023 Mental Status Orientation Oriented x 4 [facility] Clinical Notes 05-02-2019 to 08-15-2023 Addendum Note - Sarwat Shrestha RN - 06/12/2023 12:26 PM Sarwat Glass RN - 06/12/2023 12:20 PM Sarwat Glass RN - 06/12/2023 12:02 PM Christina Cruz, [employer]IST - 05/18/2023 9:46 AM EST Note Date & Type Note Facility 08-15-2023 Hospital Discharg e instructions Patient Education 08/15/2023 10:21:29 2-OPD Flex Sigmoid (05/2018) (CUSTOM) Flexible Sigmoidoscopy Discharge Instructions __X__ Begin with a light first meal. Advance to your previous diet as tolerated. __X__ Belching, passing gas or mild abdominal cramping is to be expected. Notify your doctor if you have severe abdominal pain, fever, or excessive rectal bleeding. If you have any questions, please call your doctor at the number listed on your follow-up instructions. Follow all instructions given to you by your doctor. You have received Fentanyl and Versed as part of your sedation. Follow Up Care 05/25/2023 14:36:02 With:HARRIS FOURNIER MD Address: [address] [place] [address]- When: Unknown Comments:Follow-up as needed [facility] 08-15-2023 Summary of episod e note Discharge Instructions Thank you for allowing [facility] to assist you with your healthcare needs. The following is important discharge information regarding your hospital visit. What to do next Follow Up Appointments Follow Up with HARRIS FOURNIER MD When Why: Follow-up as needed Where: [address] [place] [address]- Education Materials Flexible Sigmoidoscopy Discharge Instructions __X__ Begin with a light first meal. Advance to your previous diet as tolerated. __X__ Belching, passing gas or mild abdominal cramping is to be expected. Notify your doctor if you have severe abdominal pain, fever, or excessive rectal bleeding. If you have any questions, please call your doctor at the number listed on your follow-up instructions. Follow all instructions given to you by your doctor. You have received Fentanyl and Versed as part of your sedation. Additional Information VACCINATE! IT SAVES LIVES! Members of the community who have not yet received the COVID-19 vaccine and would like to receive it can visit one of [facility] vaccine clinics. There are many vaccine clinic locations within the [facility]. For locations and available times, please visit [email or web address].o hio.gov/. It is important to note that some COVID mobile vaccine clinics are held outdoors and may be canceled in rainy or stormy conditions. To learn more about pediatric vaccinations (ages 5-11), we invite you to visit the [facility] webpage. https://www.[email or web address].org/p ages/9434-Hqhei-Xowxkuuqhqb-Freq ebnwrq-Exgwe-Lxacqvkwm.html To learn more about the COVID-19 vaccine, we invite you to visit the CDC website for a list of frequently asked questions.https://www.cdc.gov/co ronavirus/2019-ncov/vaccines/faq .html [facility] Patient Portal Access Instructions: Stay connected with your healthcare team and access your personal medical information anytime with the [facility] Patient Portal. Please follow the directions below to create your [facility] account: 1.Access the email account you provided upon registration to the hospital/physician office.2.Look for an invitation email from [facility].3.Open the email and access the invitation link: Accept Invitation to [facility].4.Fill in the required etienne to create your account. To access your account, visit [email or web address]. Click the blue button labeled Access Patient Portal and then log in with the username and password that you created in the steps above. You will be able to view your test results, lab results, a summary of your visits, upcoming appointments and more. There is also a convenient messaging option where you can send secure messages to your provider. In addition, you will have the ability to download any documents or summaries to your computer and/or send the information securely to a physician. Remember that your healthcare information is confidential, so carefully consider who you will allow to register on the [facility] Patient Portal for access to your information. You can also access the [facility] Patient Portal on the [facility] león. Simply click on Patient Portal and then log into your account. If you would like to receive a full copy of your medical records, please contact the [facility] Medical Records Department by calling [phone], Monday through Monday between 8 a.m. and 4:30 p.m. HOW TO SAFELY DISPOSE OF PRESCRIPTION MEDICATIONS Please use one of the following methods to safely dispose of your unused medications. 1.Use a drug disposal kit: the drug disposal pouch allows you to safely discard your old and unused drugs. Ask your nurse to give you one when you are discharged.2.Visit a local take-back location: Many local pharmacies and police departments have programs that collect old and unwanted prescription drugs. Call your local pharmacy or go to http://bit.ly/6I1Jy6p to find one close to you.3.Make use of household items: Use cat litter or old coffee grounds to dispose medications if other options are not available. Mix your drugs with these household products, seal them in an airtight container and throw it into the garbage. Call [facility]: [phone] to be sure your drugs can be disposed of in this way. Some medicines may require a different approach.4.Never flush your medications down the toilet. IF YOU HAVE BEEN PRESCRIBED AN OPIOID FOR PAIN If you have been prescribed an opioid (such as hydrocodone, oxycodone or morphine), it is critical to understand the possible side effects and risks of opioid pain medications. Even when taken as directed, opioids can have several side effects including: Tolerance, meaning you might need to take more of a medication for the same pain relief. Nausea, vomiting and/or constipation. Sleepiness, dizziness, dry mouth, confusion, depression or itching. Physical dependence, meaning you have withdrawal symptoms when a medication is stopped, can develop within a few days. KNOW YOUR RESPONSIBILITIES It is important to know exactly how much and how often to take the opioid pain medications you are prescribed. Never take opioids in higher amounts or more often than prescribed. Do not combine opioids with alcohol or other drugs that cause drowsiness, such as benzodiazepines, also known as benzos, including diazepam and alprazolam, muscle relaxants or sleep aids. Never sell or share prescription opioids. This is illegal. Store opioids in a secure place and out of reach of others (including children, family, friends and visitors). The last page of this document has been signed and retained as a CHART COPY. Signatures Patient Education Materials 2-OPD Flex Sigmoid (05/2018) (CUSTOM) Medication Leaflets My discharge plan and instructions have been reviewed and explained to me and I,YNES ARGUELLO understand my current condition and have read and understand these discharge instructions. I have received a written copy of the plan/instructions. If I have questions, I am aware that I should contact my doctor. 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 Author Type: Registered Nurse Type: Progress Notes Filed: 06/12/2023 12:25 PM Note Text: ET/WOCN Nursing Consult Topic: ET/WOCN Consultation Note ET Outcome: Patient seen in the outpatient clinic to see Hai Haney CNP and [facility] nursing for yearly visit. No issues with pouching. Declined pouch change at this visit. She has established account with [facility]. Changes her pouch twice a week. Requesting updated ostomy supply form. [facility] request us to email script. Patient given updated ostomy supply form and advised her to email script. JAJA Haney will be helping patient to get established with Dr. Anita JUAN. ET's Next Scheduled Visit: yearly/as needed Time Increment: 30 minutes Sarwat Shrestha RN, BSN, CWOCN [facility] 06-12-2023 Note HNO ID: [id number] Author: Sarwat Shrestha RN Service: ? Author Type: Registered Nurse Type: Progress Notes Filed: 06/12/2023 12:13 PM Note Text: [place] [address] Patient: Ynes Arguello Patient Address: [address] [place] [address] Preferred Gender: female Date of : 1985 Type of Stoma: End Ileostomy Diagnosis: Ulcerative Colitis K51.90 OSTOMY SUPPLY ORDER FORM Pouch: Coloplast: Other: #52325 SenSura Click Easi-Close Drainable Pouch w/Filter 30 day use - 2 Boxes Wafer: Other: Coloplast Click Wafer #58516 SenSura Click Xpro Convex Light,cut to fit 30 day use - 4 Boxes Adhesive Removers: Coloplast Brava [place]onda # [id number] 30 day use - 2 cans Misc. Accessories: Mefix Tape 2 # [id number] 30 day use - 1 Roll Moldable Ring: Coloplast Brava 4.2mm Moldable # [id number] 30 day use - 2 Boxes Odor Eliminator Drops: Aurora M9 Drops # 7717 30 day use - 2 Bottles Refills: 11 Attending Physician: Christina Valles CNP For immediate authorization, please contact the physician?s office. [facility] Nurse: SANTA Slaughter, CWOCN Note: [facility] [email or web address] SIGNATURE: Sarwat Shrestha RN PATIENT NAME: Ynes Arguello DATE: June 12, 2023 TIME: 12:03 PM CONTACT #: [phone] [facility] 06-12-2023 Note HNO ID: [id number] Author: Christina Valles APRN.JAJA Service: ? Author Type: Nurse Practitioner Type: Progress Notes Filed: 06/12/2023 12:28 PM Note Text: COLORECTAL SURGERY Follow-up June 12, 2023 Chief complaint: follow up HPI: Local flex sig scheduled for Aug 2023 05/02/2019 Laparoscopic TAC with EI and supra fascial implantation of rectal stump for UC with Dr. Ramirez Physical Exam: Ht 160 cm (5' 3 ) Wt 67 kg (147 lb 9.6 oz) LMP 06/05/2023 (Exact Date) BMI 26.15 kg/m? General - awake, alert, no acute distress Abdominal - stoma in place, see WOCN note See WOCN Note Assessment Medical Decision Making: Assessment AND Diagnosis: Ynes Arguello is a 37 year old female here f/u s/p TAC with EI for UC, rectal stump in situ. We had a discussion again about J pouch vs completion proctectomy vs rectal stump in situ with surveillance. We discussed that it is likely better not to wait longer on the J pouch for functionality reasons but that there is no definitive cut of date (discussed with Dr. Howard). We discussed that in the future her rectal stump may become strictured/disease/cancer,etc requiring proctectomy. For now, pt is happy and will continue with rectal stump in situ with EI and yearly flexible sigmoidoscopies. She will continue to consider other options and will reach out to me if she changes her mind/needs surgery and we can have her do a VV with Dr. Howard Ulcerative colitis s/p TAC with rectal stump- Today 06/12/2023, she is doing well and considering proctectomy- asymptomatic but know that likely she will need the surgery in the future and is fairly certain that she does not want a J pouch. We discussed options again and she prefers to discuss proctectomy with a surgeon. She knows that she may need the rectum out in the future but is OK with ongoing surveillance of the rectal stump and understands the risks including but not limiting to rectal stump stricture making scope impossible, cancer of the rectal stump, bleeding, infection, etc. Data Reviewed: Tests AND Documents Reviewed/ordered: Review of prior notes from [facility] Review of Procedures / Tests: Flexible Sigmoidoscopy I have discussed Ynes Arguello's treatment plan and/or results with pt. Treatment plan: Cc Dr. Howard to discuss surgical options Scheduled for flex sig locally in Aug Scheduled for V[facility] with Dr. Howard in [facility], discussed with Tiffany Ongoing plan: F/u with [facility] and stoma in 1 year Jun 2024 or Jul/Aug 2024, sooner with issues Flex sig can be every 2-3 years as long as normal so far and OK per local endoscopist unless new symptoms arise Risk of morbidity, mortality and/or complications of treatment plan: low [facility] 06-12-2023 Miscellaneous Notes Addended by: SARWAT SHRESTHA on: 06/12/2023 12:26 PM Modules accepted: Orders documented in this encounter [facility] 06-12-2023 History of Presen t illness Narrative ET/WOCN Nursing Consult Topic: ET/WOCN Consultation Note ET Outcome: Patient seen in the outpatient clinic to see Hai Haney CNP and [facility] nursing for yearly visit. No issues with pouching. Declined pouch change at this visit. She has established account with [facility]. Changes her pouch twice a week. Requesting updated ostomy supply form. [facility] request us to email script. Patient given updated ostomy supply form and advised her to email script. JAJA Haney will be helping patient to get established with Dr. Anita JUAN. ET's Next Scheduled Visit: yearly/as needed Time Increment: 30 minutes Sarwat Shrestha RN, [place]SN, [place] [address] Patient: Ynes Arguello Patient [address] [id number] Preferred Gender: female Date of : 1985 Type of Stoma: End Ileostomy Diagnosis: Ulcerative Colitis K51.90 OSTOMY SUPPLY ORDER FORM Pouch: Coloplast: Other: #18628 SenSura Click Easi-Close Drainable Pouch w/Filter 30 day use - 2 Boxes Wafer: Other: Coloplast Click Wafer #31252 SenSura Click Xpro Convex Light,cut to fit 30 day use - 4 Boxes Adhesive Removers: Coloplast Brava Anaconda # [id number] 30 day use - 2 cans Misc. Accessories: Mefix Tape 2 # [id number] 30 day use - 1 Roll Moldable Ring: Coloplast Brava 4.2mm Moldable # [id number] 30 day use - 2 Boxes Odor Eliminator Drops: Luzmaria M9 Drops # [id number] 30 day use - 2 Bottles Refills: 11 Attending Physician: Christina Valles SOLAR ENERGY SPECIALIST For immediate authorization, please contact the physician s office. [facility] Nurse: SANTA Slaughter, CWOCN Note: [facility] [email or web address] SIGNATURE: Sarwat Shrestha RN PATIENT NAME: Ynes Arguello DATE: June 12, 2023 TIME: 12:03 PM CONTACT #: [phone] documented in this encounter [facility] 06-12-2023 History of Presen t illness Narrative COLORECTAL SURGERY Follow-up June 12, 2023 Chief complaint: follow up HPI: Local flex sig scheduled for Aug 2023 05/02/2019 Laparoscopic TAC with EI and supra fascial implantation of rectal stump for UC with Dr. Ramirez Physical Exam: Ht 160 cm (5' 3 ) Wt 67 kg (147 lb 9.6 oz) LMP 06/05/2023 (Exact Date) BMI 26.15 kg/m General - awake, alert, no acute distress Abdominal - stoma in place, see WOCN note See WOCN Note Assessment Medical Decision Making: Assessment & Diagnosis: Ynes Arguello is a 37 year old female here f/u s/p TAC with EI for UC, rectal stump in situ. We had a discussion again about J pouch vs completion proctectomy vs rectal stump in situ with surveillance. We discussed that it is likely better not to wait longer on the J pouch for functionality reasons but that there is no definitive cut of date (discussed with Dr. Howard). We discussed that in the future her rectal stump may become strictured/disease/cancer,etc requiring proctectomy. For now, pt is happy and will continue with rectal stump in situ with EI and yearly flexible sigmoidoscopies. She will continue to consider other options and will reach out to me if she changes her mind/needs surgery and we can have her do a VV with Dr. Howard Ulcerative colitis s/p TAC with rectal stump- Today 06/12/2023, she is doing well and considering proctectomy- asymptomatic but know that likely she will need the surgery in the future and is fairly certain that she does not want a J pouch. We discussed options again and she prefers to discuss proctectomy with a surgeon. She knows that she may need the rectum out in the future but is OK with ongoing surveillance of the rectal stump and understands the risks including but not limiting to rectal stump stricture making scope impossible, cancer of the rectal stump, bleeding, infection, etc. Data Reviewed: Tests & Documents Reviewed/ordered: Review of prior notes from [facility] Review of Procedures / Tests: Flexible Sigmoidoscopy I have discussed Ynes Arguello's treatment plan and/or results with pt. Treatment plan: Cc Dr. Howard to discuss surgical options Scheduled for flex sig locally in Aug Scheduled for VV with Dr. Howard in new slot, discussed with Tiffany Ongoing plan: F/u with [facility] and stoma in 1 year Jun 2024 or Jul/Aug 2024, sooner with issues Flex sig can be every 2-3 years as long as normal so far and OK per local endoscopist unless new symptoms arise Risk of morbidity, mortality and/or complications of treatment plan: low documented in this encounter [facility] 05-18-2023 Note HNO ID: [id number] Author: Christina Valles APRN.CNP Service: ? Author Type: Nurse Practitioner Type: Progress Notes Filed: 05/19/2023 6:51 AM Note Text: Order placed and messed sent to Heather to please fax per pt request Christina Valles APRN.CNP [facility] 05-18-2023 History of Presen t illness Narrative Images from the original note were not included. Order placed and messed sent to Heather to please fax per pt request Christina Valles APRN.CNP documented in this encounter [facility] 08-09-2022 Note HNO ID: [id number] Author: Brandi Nicole RN Service: ? Author Type: Registered Nurse Type: Progress Notes Filed: 08/09/2022 4:07 PM Note Text: ET/WOCN Nursing Consult Topic: ET/WOCN Consultation Note ET Outcome: Patient is here for annual visit with Christina [employer]. She has established account with [facility]. Changes her pouch twice a week, and is not having any issues, states that skin is clear and intact. Requests that we fax the script to [facility], she will email me the current fax number for them, and I will fax the script accordingly. ET's Next Scheduled Visit: As needed Time Increment: 30 minutes Brandi Nicole RN (Terri), BSN, [place] [address] Patient: Ynes Arguello Patient Address: [address] [place] [address] Preferred Gender: female Date of : 1985 Type of Stoma: End Ileostomy Diagnosis: Ulcerative Colitis K51.90 OSTOMY SUPPLY ORDER FORM Adhesive Removers: Coloplast Brava [place] # [id number] 30 day use - 1 Bottle Coloplast Click Pouch: #34472 SenSura Click Easi-close drainable pouch with filter 30 day use - 2 Boxes Coloplast Click Wafer: #05579 SenSura Click Xpro Convex Light Cut to Fit 30 day use - 4 Boxes Misc. Accessories: Mefix Tape 2 # [id number] 30 day use - 1 Roll Moldable Ring: Coloplast Brava 4.2mm Moldable # [id number] 30 day use - 2 Boxes Odor Eliminator Drops: Luzmaria M9 Drops # [id number] 30 day use - 2 Bottles Refills: 11 Attending Physician: Christina Valles CNP For immediate authorization, please contact the physician?s office. [facility] Nurse: SANTA Muir, CWOCN SIGNATURE: Brandi Nicole RN PATIENT NAME: Ynes Arguello DATE: August 09, 2022 TIME: 3:59 PM CONTACT #: [phone] EMAIL: [email or web address] [facility] 08-09-2022 Note HNO ID: [id number] Author: Christina Valles APRN.JAJA Service: ? Author Type: Nurse Practitioner Type: Progress Notes Filed: 08/09/2022 3:28 PM Note Text: COLORECTAL SURGERY Follow-up 08/09/22 Chief complaint: hx of UC HPI: Here for follow up 05/02/2019 Laparoscopic TAC with EI and supra fascial implantation of rectal stump for UC with Dr. Ramirez Here for follow-up. Overall she is doing great. No current complaints. Stoma issues: none Rectal stump flex sig locally?: due for one Physical Exam: Ht 160 cm (5' 3 ) Wt 68 kg (150 lb) LMP 08/09/2021 (Exact Date) BMI 26.57 kg/m? General - awake, alert, no acute distress Abdominal - See WOCN note, no hernia Assessment Medical Decision Making: Assessment AND Diagnosis: Ynes Arguello is a 35 year old female here f/u s/p TAC with EI for UC, rectal stump in situ. We had a discussion again about J pouch vs completion proctectomy vs rectal stump in situ with surveillance. We discussed that it is likely better not to wait longer on the J pouch for functionality reasons but that there is no definitive cut of date (discussed with Dr. Howard). We discussed that in the future her rectal stump may become strictured/disease/cancer,etc requiring proctectomy. For now, pt is happy and will continue with rectal stump in situ with EI and yearly flexible sigmoidoscopies. She will continue to consider other options and will reach out to me if she changes her mind/needs surgery and we can have her do a VV with Dr. Howard Ulcerative colitis s/p TAC with rectal stump- well controlled Today she reports no issues. Leaning towards continuing as she is. She knows that she may need the rectum out in the future but is OK with ongoing surveillance of the rectal stump and understands the risks including but not limiting to rectal stump stricture making scope impossible, cancer of the rectal stump, bleeding, infection, etc. Data Reviewed: Tests AND Documents Reviewed/ordered: Review of prior notes from [facility] I have discussed Ynes Arguello's treatment plan and/or results with pt. Treatment plan: F/u with me and stoma in 1 year Jul/Aug 2023, sooner with issues Flex sig can be every 2-3 years as long as normal so far and OK per local endoscopist unless new symptoms arise Risk of morbidity, mortality and/or complications of treatment plan: moderate [facility] 08-09-2022 History of Presen t illness Narrative COLORECTAL SURGERY Follow-up 08/09/22 Chief complaint: hx of UC HPI: Here for follow up 05/02/2019 Laparoscopic TAC with EI and supra fascial implantation of rectal stump for UC with Dr. Ramirez Here for follow-up. Overall she is doing great. No current complaints. Stoma issues: none Rectal stump flex sig locally?: due for one Physical Exam: Ht 160 cm (5' 3 ) Wt 68 kg (150 lb) LMP 08/09/2021 (Exact Date) BMI 26.57 kg/m General - awake, alert, no acute distress Abdominal - See WOCN note, no hernia Assessment Medical Decision Making: Assessment & Diagnosis: Ynes Arguello is a 35 year old female here f/u s/p TAC with EI for UC, rectal stump in situ. We had a discussion again about J pouch vs completion proctectomy vs rectal stump in situ with surveillance. We discussed that it is likely better not to wait longer on the J pouch for functionality reasons but that there is no definitive cut of date (discussed with Dr. Howard). We discussed that in the future her rectal stump may become strictured/disease/cancer,etc requiring proctectomy. For now, pt is happy and will continue with rectal stump in situ with EI and yearly flexible sigmoidoscopies. She will continue to consider other options and will reach out to me if she changes her mind/needs surgery and we can have her do a VV with Dr. Howard Ulcerative colitis s/p TAC with rectal stump- well controlled Today she reports no issues. Leaning towards continuing as she is. She knows that she may need the rectum out in the future but is OK with ongoing surveillance of the rectal stump and understands the risks including but not limiting to rectal stump stricture making scope impossible, cancer of the rectal stump, bleeding, infection, etc. Data Reviewed: Tests & Documents Reviewed/ordered: Review of prior notes from [facility] I have discussed Ynes Arguello's treatment plan and/or results with pt. Treatment plan: F/u with me and stoma in 1 year Jul/Aug 2023, sooner with issues Flex sig can be every 2-3 years as long as normal so far and OK per local endoscopist unless new symptoms arise Risk of morbidity, mortality and/or complications of treatment plan: moderate documented in this encounter [facility] documented as of this encounter (statuses as of 08/09/2022) [facility]10[facility] History of Past illness Narrative* Problem Noted Date Diagnosed Date Resolved Date Ulcerative pancolitis with rectal bleeding 05/02/2019 05/05/2019 Last Assessment & Plan: ASSESSMENT: -33 y/o female with a history of ulcerative colitis who presents to the [facility] for total abdominal colectomy with end ileostomy as the first stage of three stage pouch procedure PLAN: -POD 1 lap TAC and EI -abdominal pain well controlled -okay for GIS diet as tolerated -Salazar to be removed; await spontaneous void -ileostomy viable and functioning -ostomy consult -[facility] consult -encourage ambulation and IS use High-risk 03/20/2015 09/02/19 16 Overview: H/o cholestasis of with last . JV Supervision of normal 12/22/2014 03/20/2015 Well adult exam 03/14/2014 12/22/2014 Overview: last done 03/14/2014 Screening for diabetes mellitus (DM) 03/14/2014 12/22/2014 Need for lipid screening 03/14/2014 Normal , first 05/07/201212/08 Overview: 05/07/12: Flu vaccine given Saw gastro last week, would be convenient and perhaps helpful to try to schedule delivery right before humira injection if possible, but d/w her would not want to do anything to increase her risk of infection either. She agrees, will depend on if cervix is favorable, ect. documented as of this encounter (statuses as of 05/18/2023) [facility] History of Past illness Narrative* Problem Noted Date Diagnosed Date Resolved Date Ulcerative pancolitis with rectal bleeding 05/02/2019 05/05/2019 Last Assessment & Plan: ASSESSMENT: -33 y/o female with a history of ulcerative colitis who presents to the [facility] for total abdominal colectomy with end ileostomy as the first stage of three stage pouch procedure PLAN: -POD 1 lap TAC and EI -abdominal pain well controlled -okay for GIS diet as tolerated -Salazar to be removed; await spontaneous void -ileostomy viable and functioning -ostomy consult -[facility] consult -encourage ambulation and IS use High-risk 03/20/2015 09/02/19 16 Overview: H/o cholestasis of with last . JV Supervision of normal 12/22/2014 03/20/2015 Well adult exam 03/14/2014 12/22/2014 Overview: last done 03/14/2014 Screening for diabetes mellitus (DM) 03/14/2014 12/22/2014 Need for lipid screening 03/14/2014 Normal , first 05/07/201212/08 Overview: 05/07/12: Flu vaccine given Saw gastro last week, would be convenient and perhaps helpful to try to schedule delivery right before humira injection if possible, but d/w her would not want to do anything to increase her risk of infection either. She agrees, will depend on if cervix is favorable, ect. documented as of this encounter (statuses as of 05/19/2023) [facility] History of Past illness Narrative* Problem Noted Date Diagnosed Date Resolved Date Ulcerative pancolitis with rectal bleeding 05/02/2019 05/05/2019 Last Assessment & Plan: ASSESSMENT: -33 y/o female with a history of ulcerative colitis who presents to the [facility] for total abdominal colectomy with end ileostomy as the first stage of three stage pouch procedure PLAN: -POD 1 lap TAC and EI -abdominal pain well controlled -okay for GIS diet as tolerated -Salazar to be removed; await spontaneous void -ileostomy viable and functioning -ostomy consult -[facility] consult -encourage ambulation and IS use High-risk 03/20/2015 09/02/19 16 Overview: H/o cholestasis of with last . JV Supervision of normal 12/22/2014 03/20/2015 Well adult exam 03/14/2014 12/22/2014 Overview: last done 03/14/2014 Screening for diabetes mellitus (DM) 03/14/2014 12/22/2014 Need for lipid screening 03/14/2014 Normal , first 05/07/201212/08 Overview: 05/07/12: Flu vaccine given Saw gastro last week, would be convenient and perhaps helpful to try to schedule delivery right before humira injection if possible, but d/w her would not want to do anything to increase her risk of infection either. She agrees, will depend on if cervix is favorable, ect. documented as of this encounter (statuses as of 06/12/2023) [facility] History of Past illness Narrative* Problem Noted Date Diagnosed Date Resolved Date Ulcerative pancolitis with rectal bleeding 05/02/2019 05/05/2019 Last Assessment & Plan: ASSESSMENT: -33 y/o female with a history of ulcerative colitis who presents to the [facility] for total abdominal colectomy with end ileostomy as the first stage of three stage pouch procedure PLAN: -POD 1 lap TAC and EI -abdominal pain well controlled -okay for GIS diet as tolerated -Salazar to be removed; await spontaneous void -ileostomy viable and functioning -ostomy consult -[facility] consult -encourage ambulation and IS use High-risk 03/20/2015 09/02/19 16 Overview: H/o cholestasis of with last . JV Supervision of normal 12/22/2014 03/20/2015 Well adult exam 03/14/2014 12/22/2014 Overview: last done 03/14/2014 Screening for diabetes mellitus (DM) 03/14/2014 12/22/2014 Need for lipid screening 03/14/2014 Normal , first 05/07/201212/08 Overview: 05/07/12: Flu vaccine given Saw gastro last week, would be convenient and perhaps helpful to try to schedule delivery right before humira injection if possible, but d/w her would not want to do anything to increase her risk of infection either. She agrees, will depend on if cervix is favorable, ect. documented as of this encounter (statuses as of 06/12/2023) [facility] No data available for this section [facility] Evaluation note* Diagnosis Ulcerative chronic pancolitis with rectal bleeding (HCC)- Primary [place] ulcerative (chronic) colitis Attention to ileostomy (HCC) Attention to ileostomy [facility] Diagnosis Ulcerative chronic pancolitis with rectal bleeding (HCC)- Primary [place] ulcerative (chronic) colitis [facility] Diagnosis Ileostomy in place (HCC)- Primary Ileostomy status Attention to ileostomy (HCC) Attention to ileostomy [facility] Diagnosis Ulcerative chronic pancolitis with rectal bleeding (HCC)- Primary [place] ulcerative (chronic) colitis Attention to ileostomy (HCC) Attention to ileostomy [facility])* Outpatient Procedure (Routine) - Pending Review Specialty Diagnoses / Procedures Referred By Contac t Referred To Contact [facility] Diagnoses Ulcerative chronic pancolitis with rectal bleeding (HCC) Procedures SIGMOIDOSCOPY SIGMOIDOSCOPY FLX DX W/COLLJ SPEC BR/WA IF PFRMD Christina Valles APRN.[employer] [address] [place] [address] [facility] [address] [place] [address] Referral ID Status Reason Start Date Expiration Date Visits Requested Visits Authorized [id number] Pending Review Auto-Generat ed Referral 3 05/18/2024 1 1 [facility] Summary Purpose Family History No Family History Records FoundNo Family History Records FoundNo Family History Records Found No data available for this section Advance Directives No Advanced Directives Records FoundNo Advanced Directives Records FoundNo Advanced Directives Records Found Additional Source Comments INFORMATION SOURCE (unrecogn ized section and content) DATE CREATED AUTHOR AUTHOR'S ORGANIZ ATION 05/27/2023 [facility] ([place]) DATE CREATED AUTHOR AUTHOR'S ORGANIZ ATION 06/14/2023 [facility] Source Comments (unrecognize d section and content) In the event this informatio n is protected by the Federal Confidentiality of Alcohol and Drug Abuse Patient Records regulations: The Federal rules restrict any use of the information to criminally investigate or prosecute any alcohol or drug abuse patient.[facility] the event this information is protected by the Federal Confidentiality of Alcohol and Drug Abuse Patient Records regulations: The Federal rules restrict any use of the information to criminally investigate or prosecute any alcohol or drug abuse patient.[facility] the event this information is protected by the Federal Confidentiality of Alcohol and Drug Abuse Patient Records regulations: The Federal rules restrict any use of the information to criminally investigate or prosecute any alcohol or drug abuse patient.[facility] the event this information is protected by the Federal Confidentiality of Alcohol and Drug Abuse Patient Records regulations: The Federal rules restrict any use of the information to criminally investigate or prosecute any alcohol or drug abuse patient.[facility] the event this information is protected by the Federal Confidentiality of Alcohol and Drug Abuse Patient Records regulations: The Federal rules restrict any use of the information to criminally investigate or prosecute any alcohol or drug abuse patient.[facility] Reason for Visit (unrecogniz ed section and content) Specialty Diagnoses / Procedures Referred By Arielle saleh Referred To Contact [facility] Diagnoses Colitis Procedures est pt 1 year follow up for ostomy Self Christina VallesJIGNA.[employer] [address] [place] [address] Referral ID Status Reason Start Date Expiration Date Visits Requested Visits Authorized [id number] Authorized Financial Clearance Required - [employer] 07/14/2022 07/14/2023 4 4 Reason Comments Follow Up Patient Care team informatio n (unrecognized section and content) Care Team Personnel Name: PHYSICIAN, PATIENT UNSURE Member Role: Primary Care Physician Care Team Related Persons Name: LISA BRUCE Address: Home [address] [place] [address] Name: LISA BRUCE Address: [address] Name: HEBERT BRUCE Name: HEBERT KU Name: CRISTO ARGUELLO Address: [address] FOR RECORDS PERTAINING TO PATIENTS WHO ARE OR HAVE BEEN ENROLLED IN A CHEMICAL DEPENDENCY/SUBSTANCEABUSE PROGRAM, SOME INFORMATION MAY BE OMITTED. This clinical summary was aggregated from multiple sources. Caution should be exercised in using it in the provision of clinical care. This summary normalizes information from multiple sources, and as a consequence, information in this document may materially change the coding, format and clinical context of patient data. In addition, data may be omitted in some cases. CLINICAL DECISIONS SHOULD BE BASED ON THE PRIMARY CLINICAL RECORDS. [facility]. provides no warranty or guarantee of the accuracy or completeness of information in this document.
[2023-08-23 10:26] LABS: Anion Gap 6 (5-15); BUN 15 mg/dL (7-18); BUN/Creat Ratio 14.6 RATIO (10-20); Calcium,Total 9.3 mg/dL (8.5-10.1); Chloride 108 mmol/L (98-107); Creatinine, Serum 1.03 mg/dL (0.55-1.02); EST Glomerular Filtration Rate 64 mL/min (>60); Est Glom Filt Rate - Afr Amer 77 mL/min (>60); Glucose 79 mg/dL (74-106); Potassium 3.8 mmol/L (3.5-5.1); Sodium Level 142 mmol/L (136-145)
[2023-08-23 11:59] LABS: Hemoglobin A1c 5.3 % (3.8-5.6)
== END | disposition home or self-care (01) ==
LOC: MFPLAB 08:53
PROVIDERS: PCP Family Medicine; Visit Provider Family Medicine
DX: I10 Essential (primary) hypertension (principal); R73.09 Other abnormal glucose
CPT/HCPCS: 36415; 80048; 83036

== ENCOUNTER → 2024-01-18 | Outpatient (CLI) | payer OTHER, SELFPAY ==
[2024-01-18 11:17] LABS: Bacteria 0 SEEN /hpf (None Seen); Mucous, Urine 0 SEEN /hpf (<or=2+); Red Blood Cells-Urine 0 SEEN /hpf (0-5); Squamous Epithelial Cells - UA 0 SEEN /hpf (5-10); White Blood Cells 0 SEEN /hpf (0-5)
[2024-01-18 15:24] LABS: Absolute Lymphocyte Count 1.13 X10^3/uL (0.83-4.51); Absolute Neutrophil Count 5.1 X10^3/uL (2.0-7.7); Basophil# 0.03 X10^3/uL; Basophil% 0.4 % (0-1); Eosinophil# 0.24 X10^3/uL; Eosinophils% 3.3 % (0-5); Hematocrit 40.3 % (37-47); Hemoglobin 13.3 g/dL (12.0-15.0); Lymphocyte # 1.13 X10^3/ul (0.83-4.51); Lymphocyte % 15.7 % (19-41); Mean Corpuscular Hgb 29.8 pg (27.0-32.0); Mean Corpuscular Volume 90.2 fL (81-99); Mean Platelet Vol. 11.6 fl (6.2-12.0); Monocyte# 0.63 X10^3/uL; Monocyte% 8.8 % (0-10); NRBC Flagged by Analyzer 0 % (0-5); Neutrophil # 5.13 X10^3/uL (2.7-7.7); Neutrophil % 71.4 % (47-70); Platelet Count 334 K/mm3 (150-450); RBC Distribution Width CV 12.7 % (11.6-14.6); RBC Distribution Width SD 41.6 fl (35.1-43.9); Red Blood Count 4.47 M/mm3 (4.2-5.4); White Blood Count 7.2 K/mm3 (4.4-11.0)
[2024-01-18 15:42] LABS: ALB/GLOB Ratio 1.1 RATIO (0.9-2.4); AST(SGOT) 24 U/L (15-37); Alanine Aminotransfer ALT/SGPT 27 U/L (13-56); Albumin, Serum 3.8 g/dL (3.2-5.0); Alkaline Phosphatase 41 U/L (45-117); Anion Gap 5 (5-15); BUN 16 mg/dL (7-18); BUN/Creat Ratio 15.4 RATIO (10-20); Calcium,Total 9.1 mg/dL (8.5-10.1); Chloride 106 mmol/L (98-107); Cholesterol 203 mg/dL (200); Creatinine, Serum 1.04 mg/dL (0.55-1.02); EST Glomerular Filtration Rate 63 mL/min (>60); Est Glom Filt Rate - Afr Amer 76 mL/min (>60); Globulin 3.4 g/dL (2.2-4.2); Glucose 75 mg/dL (74-106); High Density Lipoprotein 59 mg/dL; Magnesium 2.2 mg/dL (1.6-2.6); Potassium 3.7 mmol/L (3.5-5.1); Protein, Total 7.2 g/dL (6.4-8.2); Sodium Level 138 mmol/L (136-145); Thyroid Stim Hormone (TSH) 1.49 uIU/mL (0.358-3.74); Triglycerides 79 mg/dL; Very Low Density Lipoprotein 16 mg/dL (5-40)
[2024-01-18 17:52] LABS: Color, Urine Yellow (Yellow); Glucose, Dipstick Normal (Normal); Ketone-Dipstick Negative (Negative); Leukocyte Esterase-Dipstick 100 /ul (Negative); Nitrite-Dipstick Negative (Negative); Occult Blood-Urine Negative /ul (Negative); Protein-Dipstick Negative (Negative); Urine Bilirubin Dipstick Negative (Negative); Urine Clarity Clear (Clear); Urine Urobilinogen Normal (Normal)
== END | disposition home or self-care (01) ==
LOC: MFPLAB 11:01
PROVIDERS: PCP Family Medicine; Visit Provider Family Medicine
DX: I10 Essential (primary) hypertension (principal)
CPT/HCPCS: 36415; 80053; 80061; 81001; 83735; 84443; 85025

== ENCOUNTER → 2024-02-23 | Outpatient (CLI) | payer OTHER, SELFPAY ==
[2024-02-23 12:24] LABS: Anion Gap 3 (5-15); BUN 14 mg/dL (7-18); BUN/Creat Ratio 15.8 RATIO (10-20); Chloride 106 mmol/L (98-107); Creatinine, Serum 0.89 mg/dL (0.55-1.02); EST Glomerular Filtration Rate 75 mL/min (>60); Est Glom Filt Rate - Afr Amer 91 mL/min (>60); Glucose 82 mg/dL (74-106); Potassium 4.2 mmol/L (3.5-5.1); Sodium Level 139 mmol/L (136-145)
== END | disposition home or self-care (01) ==
LOC: MFPLAB 09:01
PROVIDERS: PCP Family Medicine; Referring Provider Family Medicine; Visit Provider Family Medicine
DX: I10 Essential (primary) hypertension (principal)
CPT/HCPCS: 36415; 80048

== ENCOUNTER → 2025-01-28 | Outpatient (CLI) | payer OTHER, SELFPAY ==
[2025-01-28 08:18] LABS: Mucous, Urine 0 SEEN /hpf (<or=2+); Red Blood Cells-Urine 0 SEEN /hpf (0-5)
[2025-01-28 10:08] LABS: Hematocrit 42.2 % (37-47); Hemoglobin 14.0 g/dL (12.0-15.0); Immature Granulocytes Count 0.020 X10^3/uL (0.0-0.0); Mean Corp Hgb Conc 33.2 g/dL (32-36); Mean Corpuscular Volume 90.2 fL (81-99); Mean Platelet Vol. 11.8 fl (6.2-12.0); NRBC Flagged by Analyzer 0 % (0-5); Platelet Count 380 K/mm3 (150-450); RBC Distribution Width CV 12.8 % (11.6-14.6); RBC Distribution Width SD 41.9 fl (35.1-43.9); Red Blood Count 4.68 M/mm3 (4.2-5.4); White Blood Count 7.7 K/mm3 (4.4-11.0)
[2025-01-28 10:36] LABS: Color, Urine Yellow (Yellow); Glucose, Dipstick Normal (Normal); Ketone-Dipstick Negative (Negative); Leukocyte Esterase-Dipstick 100 /ul (Negative); Nitrite-Dipstick Negative (Negative); Occult Blood-Urine 10 /ul (Negative); Protein-Dipstick 30 mg/dl (Negative); Specific Gravity, Urine 1.015 (1.002-1.030); Urine Bilirubin Dipstick Negative (Negative)
[2025-01-28 10:51] LABS: Squamous Epithelial Cells - UA 0-5 SEEN /hpf (5-10)
[2025-01-28 10:51] LABS: AST(SGOT) 44 U/L (<=31); Alanine Aminotransfer ALT/SGPT 29 U/L (<=34); Albumin, Serum 4.4 g/dL (3.5-5.0); Alkaline Phosphatase 55 U/L (35-104); Anion Gap 12 (5-15); BUN 14 mg/dL (4-19); BUN/Creat Ratio 14.7 RATIO (10-20); Calcium,Total 9.3 mg/dL (7.6-11.0); Carbon Dioxide 25.4 mmol/L (21.0-32.0); Chloride 102 mmol/L (98-108); Cholesterol 201 mg/dL (<=200); Globulin 3.1 g/dL (2.2-4.2); Glucose 92 mg/dL (70-99); Low Density Lipoprotein Calc. 122 mg/dL; Magnesium 2.2 mg/dL (1.5-2.2); Potassium 3.8 mmol/L (3.3-5.1); Triglycerides 88 mg/dL; Very Low Density Lipoprotein 18 mg/dL (5-40); cholesterol:hdl ratio screen 3.27
== END | disposition home or self-care (01) ==
LOC: MFPLAB 08:15
PROVIDERS: PCP Family Medicine; Referring Provider Family Medicine; Visit Provider Family Medicine
DX: I10 Essential (primary) hypertension (principal); E87.6 Hypokalemia
CPT/HCPCS: 36415; 80053; 80061; 81001; 83735; 84443; 85025